=== PATIENT | female | born 1935 | race Caucasian/White ===

== ENCOUNTER → 2016-07-23 | Outpatient (CLI) | payer MEDICARE, BC ==
[2013-04-09 12:39] VITALS: BP 142/70
[~2016-07-23] MED LIST: BISOPROLOL AND1 TA1 PO; CALCIUM + D 6001 TA1 PO; DUO-KAPS1 CAP PO; LISINOPRIL10 MG PO; OMEPRAZOLE D/R20 MG PO; SALAGEN5 MG PO; ZOLOFT PO
== END ==
LOC: LAB 09:49
DX: E11.9 Type 2 diabetes mellitus without complications (principal)

== ENCOUNTER → 2016-10-25 | Outpatient (CLI) | payer MEDICARE, BC ==
[2013-04-09 12:39] VITALS: BP 142/70
== END ==
LOC: LAB 12:00
DX: M81.0 Age-related osteoporosis without current pathological fracture (principal); E11.9 Type 2 diabetes mellitus without complications

== ENCOUNTER → 2017-02-06 | Outpatient (CLI) | payer MEDICARE, BC ==
[2013-04-09 12:39] VITALS: BP 142/70
== END ==
LOC: LAB 13:47
DX: N30.00 Acute cystitis without hematuria (principal)

== ENCOUNTER → 2017-04-04 | Outpatient (CLI) | payer MEDICARE, BC ==
[2013-04-09 12:39] VITALS: BP 142/70
== END ==
LOC: LAB 15:08
DX: N39.0 Urinary tract infection, site not specified (principal); Z88.8 Allergy status to other drugs, medicaments and biological substances

== ENCOUNTER → 2017-04-15 | Outpatient (CLI) | payer MEDICARE, BC ==
[2013-04-09 12:39] VITALS: BP 142/70
[2017-04-15 15:45] LABS: HEMATOCRIT 43.9 % (37.0-47.0); HEMOGLOBIN 14.4 g/dL (12.5-16.0); MEAN CELL VOLUME 93 fl (78-100); MEAN CORPUSCULAR HEMOGLOBIN 31 pg (27-31); MEAN CORPUSCULAR HGB CONC 33 g/dL (33-37); MEAN PLATELET VOLUME 11.5 fl (7.4-10.4); PLATELET COUNT 279 K/mm3 (130-400); RED CELL DISTRIBUTION WIDTH 13.2 % (11.5-14.5); WHITE BLOOD COUNT 7.5 K/mm3 (4.8-10.8)
[2017-04-15 15:53] LABS: BUN/CREATININE RATIO 21.8 (6.0-26.0); CALCIUM 9.4 mg/dL (8.4-10.2); POTASSIUM 4.2 mmol/L (3.6-5.0); TOTAL BILIRUBIN 0.8 mg/dL (0.2-1.3); TOTAL PROTEIN 7.1 g/dL (6.3-8.2)
[2017-04-15 19:19] LABS: LYMPHOCYTE 32 % (20-51); MONOCYTE 7 % (3-10); NEUTROPHILS 52 % (42-75)
== END ==
LOC: LAB 15:13
PROVIDERS: Nurse Practitioner Family
DX: E11.9 Type 2 diabetes mellitus without complications (principal); I10 Essential (primary) hypertension

== ENCOUNTER → 2017-08-20 | Outpatient (CLI) | payer MEDICARE, BC ==
[2013-04-09 12:39] VITALS: BP 142/70
== END ==
LOC: LAB 11:16
DX: N30.01 Acute cystitis with hematuria (principal)

== ENCOUNTER → 2017-10-31 | Outpatient (CLI) | payer MEDICARE, BC ==
[2013-04-09 12:39] VITALS: BP 142/70
== END ==
LOC: LAB 16:05
DX: E11.9 Type 2 diabetes mellitus without complications (principal)

== ENCOUNTER → 2017-11-04 | Outpatient (CLI) | payer MEDICARE, BC ==
[2013-04-09 12:39] VITALS: BP 142/70
[2017-11-04 13:38] LABS: URINE APPEARANCE CLOUDY; URINE BILIRUBIN NEGATIVE (NEGATIVE); URINE COLOR YELLOW; URINE GLUCOSE NEGATIVE (NEGATIVE); URINE KETONE NEGATIVE (NEGATIVE); URINE NITRATE NEGATIVE (NEGATIVE); URINE PROTEIN(semi-quant) TRACE mg/dL (NEGATIVE); URINE UROBILINOGEN NORMAL (NORMAL)
[2017-11-04 13:39] LABS: URINE BLOOD TRACE (NEGATIVE); URINE LEUKOCYTE ESTERASE 2+ (NEGATIVE); URINE WBC >50 /hpf (0-3)
== END ==
LOC: LAB 11:41
PROVIDERS: Nurse Practitioner Family
DX: R30.0 Dysuria (principal); R39.15 Urgency of urination

== ENCOUNTER → 2017-11-20 | Outpatient (CLI) | payer MEDICARE, BC ==
[2013-04-09 12:39] VITALS: BP 142/70
[2017-11-20 13:45] LABS: URINE APPEARANCE CLEAR; URINE BILIRUBIN NEGATIVE (NEGATIVE); URINE BLOOD NEGATIVE (NEGATIVE); URINE COLOR YELLOW; URINE GLUCOSE NEGATIVE (NEGATIVE); URINE KETONE NEGATIVE (NEGATIVE); URINE LEUKOCYTE ESTERASE 2+ (NEGATIVE); URINE NITRATE NEGATIVE (NEGATIVE); URINE PROTEIN(semi-quant) 1+ mg/dL (NEGATIVE); URINE UROBILINOGEN NORMAL (NORMAL); URINE WBC 16-30 /hpf (0-3)
[2017-11-20 13:46] LABS: URINE MUCUS PRESENT (NOT PRESENT)
== END ==
LOC: LAB 11:52
PROVIDERS: Physician Assistant
DX: R39.15 Urgency of urination (principal); R30.0 Dysuria

== ENCOUNTER → 2018-03-27 | Outpatient (CLI) | payer MEDICARE, BC ==
[2013-04-09 12:39] VITALS: BP 142/70
== END ==
LOC: LAB 09:33
DX: N39.0 Urinary tract infection, site not specified (principal); R30.0 Dysuria

== ENCOUNTER 2018-05-05 13:48 | Emergency (ER) | payer MEDICARE ==
[~2018-05-05 13:48] MED LIST changes: -AMLODIPINE BESYL5 MG PO; -DULOXETINE60 MG PO; -GLUCOPHAGE PO; -LISINOPRIL20 MG PO; -METOPROLOL TAR100 M1 PO
[2018-05-05 14:04] VITALS: BP 154/85
[2018-05-05] MEDS ORDERED: AMLODIPINE BESYL5 MG PO (14:04)
[2018-05-05] MEDS ORDERED: LISINOPRIL20 MG PO (14:04)
[2018-05-05] MEDS ORDERED: GLUCOPHAGE PO (14:05)
[2018-05-05] MEDS ORDERED: METOPROLOL TAR100 M1 PO (14:05)
[2018-05-05] MEDS ORDERED: DULOXETINE60 MG PO (14:07)
== END 2018-05-05 14:40 | disposition left against medical advice (07) ==
LOC: ED 13:48
DX: R73.9 Hyperglycemia, unspecified (principal)

== ENCOUNTER → 2018-05-05 | Outpatient (CLI) | payer MEDICARE, OTHER ==
[~2018-05-05] MED LIST changes: +AMLODIPINE BESYL5 MG PO; +DULOXETINE60 MG PO; +GLUCOPHAGE PO; +LISINOPRIL20 MG PO; +METOPROLOL TAR100 M1 PO
[2018-05-05 14:04] VITALS: BP 154/85
[2018-05-05 15:18] LABS: URINE APPEARANCE HAZY; URINE BILIRUBIN NEGATIVE (NEGATIVE); URINE BLOOD NEGATIVE (NEGATIVE); URINE COLOR YELLOW; URINE KETONE NEGATIVE (NEGATIVE); URINE LEUKOCYTE ESTERASE 1+ (NEGATIVE); URINE NITRATE POSITIVE (NEGATIVE); URINE PROTEIN(semi-quant) TRACE mg/dL (NEGATIVE); URINE UROBILINOGEN NORMAL (NORMAL); URINE WBC 16-30 /hpf (0-3)
[2018-05-05 15:19] LABS: ALBUMIN 4.2 g/dL (3.5-5.0); CALCIUM 10.2 mg/dL (8.4-10.2); HEMATOCRIT 43.4 % (37.0-47.0); HEMOGLOBIN 14.5 g/dL (12.5-16.0); MEAN CELL VOLUME 93 fl (78-100); MEAN CORPUSCULAR HEMOGLOBIN 31 pg (27-31); MEAN CORPUSCULAR HGB CONC 33 g/dL (33-37); PLATELET COUNT 270 K/mm3 (130-400); RED BLOOD COUNT 4.69 M/mm3 (4.10-5.30); TOTAL BILIRUBIN 0.5 mg/dL (0.2-1.3); TOTAL PROTEIN 7.1 g/dL (6.3-8.2); WHITE BLOOD COUNT 7.5 K/mm3 (4.8-10.8)
[2018-05-05 15:43] LABS: LYMPHOCYTE 38 % (20-51); MONOCYTE 4 % (3-10); NEUTROPHILS 49 % (42-75)
== END ==
LOC: LAB 14:49
PROVIDERS: Nurse Practitioner
DX: R30.0 Dysuria (principal); R10.9 Unspecified abdominal pain

== ENCOUNTER → 2018-05-13 | Outpatient (CLI) | payer MEDICARE, OTHER ==
[2018-05-05 14:04] VITALS: BP 154/85
[~2018-05-13] MED LIST changes: +AMLODIPINE BESYL5 MG PO; +DULOXETINE60 MG PO; +GLUCOPHAGE PO; +LISINOPRIL20 MG PO; +METOPROLOL TAR100 M1 PO
== END ==
LOC: LAB 15:56
PROVIDERS: Physician Assistant
DX: Z00.00 Encounter for general adult medical examination without abnormal findings (principal); E11.9 Type 2 diabetes mellitus without complications; I10 Essential (primary) hypertension; R05 Cough; L29.9 Pruritus, unspecified; M19.90 Unspecified osteoarthritis, unspecified site; D47.2 Monoclonal gammopathy; E83.119 Hemochromatosis, unspecified; N39.0 Urinary tract infection, site not specified

== ENCOUNTER → 2019-09-01 | Outpatient (CLI) | payer MEDICARE ==
[2019-09-01 17:16] LABS: BASO # 0.1 (0.02-0.10); EOS # 0.6 (0.04-0.40); EOS % 7.5 % (1.0-5.0); HEMATOCRIT 41.6 % (37.0-47.0); HEMOGLOBIN 13.5 g/dL (12.5-16.0); LYMPH# 3.2 (1.50-4.00); MEAN CELL VOLUME 95 fl (78-100); MEAN CORPUSCULAR HEMOGLOBIN 31 pg (27-31); MEAN CORPUSCULAR HGB CONC 33 g/dL (33-37); MONO # 0.7 (0.20-0.80); NEU # 3.6 (1.40-6.50); PLATELET COUNT 255 K/mm3 (130-400); RED BLOOD COUNT 4.36 M/mm3 (4.10-5.30); WHITE BLOOD COUNT 8.1 K/mm3 (4.8-10.8)
[2019-09-01 17:30] LABS: ALBUMIN 3.9 g/dL (3.4-4.8); POTASSIUM 4.3 mmol/L (3.5-5.1)
[2019-09-01 17:31] LABS: CALCIUM 9.1 mg/dL (8.3-10.5)
[2019-09-01 17:32] LABS: TOTAL PROTEIN 6.7 g/dL (6.2-8.1)
[2019-09-01 17:34] LABS: TOTAL BILIRUBIN 0.3 mg/dL (0.2-1.2)
[2019-09-04 14:00] LABS: A/G RATIO (PEP) 1.12 (()); BETA GLOBULINS (PEP) 0.9 g/dL (0.7-1.2)
== END ==
LOC: LAB 16:19
PROVIDERS: Internal Medicine Medical Oncology
DX: C91.10 Chronic lymphocytic leukemia of B-cell type not having achieved remission (principal); D47.2 Monoclonal gammopathy

== ENCOUNTER → 2019-09-15 | Outpatient (CLI) | payer MEDICARE ==
[2019-09-15 16:09] LABS: URINE APPEARANCE CLEAR; URINE BILIRUBIN NEGATIVE (NEGATIVE); URINE COLOR YELLOW; URINE GLUCOSE 50 mg/dL mg/dL (NEGATIVE); URINE KETONE TR (NEGATIVE); URINE PROTEIN(semi-quant) TRACE mg/dL (NEGATIVE); URINE UROBILINOGEN NORMAL (NORMAL)
[2019-09-15 16:10] LABS: URINE BLOOD NEGATIVE (NEGATIVE); URINE LEUKOCYTE ESTERASE 1+ (NEGATIVE); URINE MUCUS PRESENT (NOT PRESENT); URINE NITRATE NEGATIVE (NEGATIVE)
== END ==
LOC: LAB 15:10
PROVIDERS: Internal Medicine Rheumatology
DX: N30.00 Acute cystitis without hematuria (principal)

== ENCOUNTER → 2020-06-20 | Outpatient (CLI) | payer MEDICARE | LOC: RAD 14:40 | DX: R22.1 Localized swelling, mass and lump, neck (principal) ==

== ENCOUNTER 2021-12-26 13:01 | Emergency (ER) | payer MEDICARE ==
[~2021-12-26] VITALS: Ht 167.6 cm; Wt 75.0 kg
[2021-12-26] MEDS ORDERED: METFORMIN HYD1000 M1 PO (13:24)
[2021-12-26] MEDS ORDERED: GLIMEPIRIDE2 M1 PO (13:25)
[2021-12-26] MEDS ORDERED: CYCLOBENZAPRINE10 M1 PO (13:25)
[2021-12-26 15:35] VITALS: BP 169/81
== END 2021-12-26 15:35 | disposition home or self-care (01) ==
LOC: ED 13:01
DX: S52.571A Other intraarticular fracture of lower end of right radius, initial encounter for closed fracture (principal); W01.0XXA Fall on same level from slipping, tripping and stumbling without subsequent striking against object, initial encounter
CPT/HCPCS: 15980; A4570

== ENCOUNTER → 2023-04-04 | Outpatient (CLI) | payer MEDICARE ==
[~2023-04-04] MED LIST changes: +CYCLOBENZAPRINE10 M1 PO; +GLIMEPIRIDE2 M1 PO; +GLUCOPHAGE; +KAPSPARGO SPRIN25 MG; +METFORMIN HYD1000 M1 PO; +NORVASC 5MG5 MG/TAB; +ZESTRIL20 M1
== END ==
LOC: RAD 14:05
DX: I63.9 Cerebral infarction, unspecified (principal); R59.1 Generalized enlarged lymph nodes

== ENCOUNTER → 2024-03-05 | Outpatient (CLI) | payer MEDICARE ==
[~2024-03-05] MED LIST changes: +Iohexol 300 - 100 ML VIAL IV ONE
== END ==
LOC: RAD 08:43
DX: K44.9 Diaphragmatic hernia without obstruction or gangrene (principal); M47.816 Spondylosis without myelopathy or radiculopathy, lumbar region; R59.1 Generalized enlarged lymph nodes; M16.0 Bilateral primary osteoarthritis of hip; Z85.72 Personal history of non-Hodgkin lymphomas
CPT/HCPCS: Q9967

== ENCOUNTER → 2024-03-23 | Day surgery (SDC) | payer MEDICARE ==
[~2024-03-23] MED LIST changes: -Iohexol 300 - 100 ML VIAL IV ONE; +Lidocaine PF 2% (20 MG/ML) 2 ML VIAL ONE
== END ==
LOC: MSO 08:38
DX: D12.8 Benign neoplasm of rectum (principal); K52.9 Noninfective gastroenteritis and colitis, unspecified; K57.30 Diverticulosis of large intestine without perforation or abscess without bleeding; K62.89 Other specified diseases of anus and rectum; Z85.72 Personal history of non-Hodgkin lymphomas
CPT/HCPCS: 00811; J2704; J7120

== ENCOUNTER → 2024-06-19 | Outpatient (CLI) | payer MEDICARE ==
[~2024-06-19] MED LIST changes: +Iodixanol-320 100 ML BOTTLE IV ONE; -Lidocaine PF 2% (20 MG/ML) 2 ML VIAL ONE; +NS 100 ML IV SCH
== END ==
LOC: RAD 09:53
DX: C91.10 Chronic lymphocytic leukemia of B-cell type not having achieved remission (principal); D47.2 Monoclonal gammopathy
CPT/HCPCS: Q9967